=== PATIENT | male | born 1975 | race Caucasian/White ===

== ENCOUNTER 2017-07-19 21:20 | Inpatient (IN) | payer OTHER ==
[2017-07-19 21:20] VITALS: BMI 48.2
--- NOTE | 2017-07-19 22:13 | C.PDOC ---
History Of Present Illness 41 y/o male c/o painful wound to the right tibia area for 1 day. Patient notes hitting his right leg when getting out the shower yesterday. Patient is a poor controller of his blood pressure and diabetes at home. Patient had former chronic pain issues and is now taking Methadone 145 mg daily. Denies fever, chills, weakness, numbness, or any other complaints. Time Seen by Provider: 07/19/17 22:06 Chief Complaint (Nursing): Abnormal Skin Integrity History Per: Patient History/Exam Limitations: no limitations Onset/Duration Of Symptoms: Days Current Symptoms Are (Timing): Still Present Location Of Injury: Right: Leg Severity: Mild Recent travel outside of the [place]: No Additional History Per: Patient Past Medical History Reviewed: Historical Data, Nursing Documentation, Vital Signs Vital Signs: Last Vital Signs Temp 99 F 07/19/17 23:46 Pulse 114 H 07/19/17 23:46 Resp 20 07/19/17 23:46 BP 152/85 H 07/19/17 23:46 Pulse Ox 98 07/19/17 23:46 - Medical History PMH: Arthritis (hands), Asthma, Bronchitis, CVA (3x), Diabetes, HTN, Hypercholesterolemia Denies: Depression, Chronic Kidney Disease Surgical History: Denies: Pacemaker - [facility] Procedures INFLUENZA VACCINATION (01/20/15) INJECT/INFUSE ELECTROLYT (04/11/12) INJECT/INFUSE NEC (09/26/14) INSERTION OF INFUSION DEV INTO SUP VENA CAVA, PERC APPROACH (08/18/16) OTHER SKIN & SUBQ I D (07/20/14) REMOVAL OF INT FIX FROM L ULNA, OPEN APPROACH (07/07/16) REPLACEMENT OF LEFT ULNA WITH AUTOL SUB, OPEN APPROACH (07/07/16) REPOSITION LEFT ULNA WITH INT FIX, OPEN APPROACH (07/07/16) SCROTUM & TUNICA I D (01/20/15) SUPPLEMENT LEFT ULNA WITH NONAUT SUB, OPEN APPROACH (07/07/16) Family History: States: Diabetes, Hypertension - Social History Hx Tobacco Use: No Hx Alcohol Use: No Hx Substance Use: No - Immunization History Hx Tetanus Toxoid Vaccination: No Hx Influenza Vaccination: No Hx Pneumococcal Vaccination: No Review Of Systems Except As Marked, All Systems Reviewed And Found Negative. Constitutional: Negative for: Fever, Chills Musculoskeletal: Positive for: Leg Pain Neurological: Negative for: Weakness, Numbness Physical Exam - Physical Exam Appears: Non-toxic, No Acute Distress, Other (Morbidly obese) Skin: Warm, Dry Head: Atraumatic, Normacephalic Oral Mucosa: Moist Neck: Supple Chest: Other (Bilateral breast gynecomastia) Cardiovascular: Rhythm Regular Respiratory: Normal Breath Sounds, No Rales, No Rhonchi, No Wheezing Gastrointestinal/Abdominal: Soft, No Tenderness Extremity: Capillary Refill (<2secs), Other (Amputation to the left hip. 10cm x 5cm abrasion to the anterior aspect of the right tibia with surrounding erythema.) Pulses: Right Dorsalis Pedis: Normal (Pulses bounding) Neurological/Psych: Oriented x3, Normal Speech, Normal Cognition, Normal Motor, Normal Sensation ED Course And Treatment - Laboratory Results Result Diagrams: 07/19/17 22:38 08 22:38 Lab Interpretation: Abnormal (++ glu, trop neg.) ECG: Interpreted By Co ECG Rhythm: Sinus Rhythm ECG Interpretation: Normal Rate From EC O2 Sat by Pulse Oximetry: 100 (RA) Pulse Ox Interpretation: Normal - Radiology CXR: Interpreted by Me CXR Interpretation: Yes: No Acute Disease Progress Note: vomited during zosyn infusion, refuses further Zosyn. zofran given. pt argumentative confrontational, wants to go outside for "fresh air" instructed not to. Reevaluation Time: 23:19 Reassessment Condition: Improved - Physician Consult Information Outcome Of Conversation: 2220: d/w Dr. Villalobos and Dr. Phillips, ok to med surg Obs. Medical Decision Making Medical Decision Making: Impression: 41 y/o male c/o painful wound to the right tibia area for 1 day. Plans: * EKG * Blood work up * CXR * Zofran * Trandate * Blood culture * IV fluids infection R anterior tibia area x 1 day after superficial abrasion zosyn started Vanco allergic- deferred. Dr. Phillips to consult as prior Behavioral abnormalities, ? Boarderline personality vs CVA x 3 Disposition Doctor Will See Patient In The: Hospital Counseled Patient/Family Regarding: Studies Performed, Diagnosis - Disposition Disposition: HOSPITALIZED Disposition Time: 23:21 Condition: GOOD - Clinical Impression Clinical Impression: Cellulitis of leg, right, Hypertension, Diabetes - Scribe Statement The provider has reviewed the documentation as recorded by the Scribe Darline bojorquez All medical record entries made by the Reginaibe were at my direction and personally dictated by me. I have reviewed the chart and agree that the record accurately reflects my personal performance of the history, physical exam, medical decision making, and the department course for this patient. I have also personally directed, reviewed, and agree with the discharge instructions and disposition.
[2017-07-19] MEDS ORDERED: (Novolin R) Insulin Human Regular 100 units/ml vial IV STA (22:14)
[2017-07-19] MEDS ORDERED: Piperacillin/Tazobact 3.375 gm 100 ML IVPB STA (22:14)
[2017-07-19] MEDS ORDERED: Piperacillin/Tazobact 3.375 gm 100 ML IVPB ONE (22:24)
[2017-07-19] MEDS ORDERED: (Novolin R) Insulin Human Regular 100 units/ml vial ONE (22:24)
[2017-07-19 22:42] LABS: BASO # 0.1 K/uL (0.0-0.2); BASO % 1.1 % (0.0-2.0); EOS # 0.1 K/uL (0.0-0.7); EOS % 0.7 % (0.0-4.0); HEMATOCRIT 37.4 % (35.0-51.0); LYMPH # 1.3 K/uL (1.0-4.3); LYMPH % 14.5 % (20.0-40.0); MEAN CELL VOLUME 81.5 fL (80.0-94.0); MEAN CORPUSCULAR HEMOGLOBIN 27.7 pg (27.0-31.0); MEAN CORPUSCULAR HGB CONC 33.9 g/dL (33.0-37.0); MONO # 0.4 K/uL (0.0-0.8); MONO % 4.9 % (0.0-10.0); RED CELL DISTRIBUTION WIDTH 13.3 % (11.5-14.5); WHITE BLOOD COUNT 9.2 K/uL (4.8-10.8)
[2017-07-19 22:49] LABS: CHLORIDE 95 mmol/L (98-107); POTASSIUM 4.4 mmol/L (3.6-5.2); SODIUM 132 mmol/L (132-148)
[2017-07-19 22:51] LABS: ALB/GLOB RATIO 0.8 (1.0-2.1); ALKALINE PHOSPHATASE 99 U/L (38-126); AST/SGOT 25 U/L (17-59); BILIRUBIN,TOTAL 0.5 mg/dL (0.2-1.3); CARBON DIOXIDE 30 mmol/L (22-30); GFR AFRICAN-AMERICAN > 60; TOTAL PROTEIN 6.3 g/dL (6.3-8.3)
[2017-07-19 22:52] LABS: ALT/SGPT 31 U/L (21-72); BLOOD UREA NITROGEN 12 mg/dL (9-20); CALCIUM 8.5 mg/dl (8.6-10.4)
[2017-07-19 23:04] LABS: GLUCOSE,RANDOM 420 mg/dL (75-110)
[2017-07-19 23:31] VITALS: RESP 20
[2017-07-20] MEDS: Albuterol-Ipratrop 3 mg / 0.5 (3 ml) UD INH SCH ×3 (09:23→19:24)
[2017-07-20] MEDS: Enoxaparin 40 mg Syringe SC SCH (10:13)
[2017-07-20] MEDS: Saccharomyces Boulardi 250 mg Cap PO SCH ×2 (10:13→17:18)
[2017-07-20] MEDS: Lactobacillus Acidophilus 500 MU Cap PO SCH ×2 (10:14→17:19)
[2017-07-20] MEDS: (Novolin R) Insulin Human Regular 100 units/ml vial SC SCH ×4 (10:14→22:03)
--- NOTE | 2017-07-20 11:04 | RAD ---
HISTORY: SOB COMPARISON: Chest x-ray performed 10/31/14 TECHNIQUE: Chest, one view. FINDINGS: Examination limited by habitus. LUNGS: Mild pulmonary venous congestion. Bilateral hilar prominence. Please note that chest x-ray has limited sensitivity for the detection of pulmonary masses. PLEURA: No significant pleural effusion identified. No definite pneumothorax . CARDIOVASCULAR: Heart size appears top normal. OSSEOUS STRUCTURES: No acute osseous abnormality identified. VISUALIZED UPPER ABDOMEN: Unremarkable. OTHER FINDINGS: None. IMPRESSION: Mild pulmonary venous congestion. Bilateral hilar prominence.
--- NOTE | 2017-07-20 11:41 | CARD ---
APPROVED REPORT EKG Measurement Heart [id number] <Conclusion> Normal sinus rhythm Incomplete right bundle branch block Prolonged QT Abnormal ECG
[2017-07-20] MEDS ORDERED: Methadone 40 mg Tab PO SCH ×2 (13:02→13:30)
[2017-07-20] MEDS: Methadone 40 mg Tab PO SCH (13:45)
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
[2017-07-20] MEDS: (Lantus) Insulin Glargine, Recombinant SC SCH (22:03)
[2017-07-21] MEDS: Albuterol-Ipratrop 3 mg / 0.5 (3 ml) UD INH SCH ×3 (01:25→20:19)
[2017-07-21] MEDS: (Novolin R) Insulin Human Regular 100 units/ml vial SC SCH ×4 (07:51→22:24)
[2017-07-21] MEDS: Methadone 40 mg Tab PO SCH (09:58)
[2017-07-21] MEDS: Lactobacillus Acidophilus 500 MU Cap PO SCH ×2 (10:07→22:24)
[2017-07-21] MEDS: Saccharomyces Boulardi 250 mg Cap PO SCH ×2 (10:07→18:46)
[2017-07-21] MEDS: Enoxaparin 40 mg Syringe SC SCH (10:10)
[2017-07-21 16:33] VITALS: BP 143/88; PULSE 86; TEMP 97.6; O2SAT 96
--- NOTE | 2017-07-21 19:31 | CP.PCM.PN ---
Subjective - Date & Time of Evaluation Date of Evaluation: 07/21/17 Time of Evaluation: 19:31 Objective - Vital Signs/Intake and Output Vital Signs (last 24 hours): Temp Pulse Resp BP Pulse Ox 97.6 F 86 20 143/88 96 07/21/17 15:32 07/21/17 15:32 07/21/17 15:32 07/21/17 15:32 07/21/17 15:32 - Medications Medications: Current Medications Albuterol/Ipratropium (Duoneb 3 Mg/0.5 Mg (3 Ml) Ud) 3 ml INH RQ6 [facility] Last Admin: 07/21/17 08:07 Dose: Not Given Amlodipine Besylate (Norvasc) 5 mg PO DAILY [facility] Last Admin: 07/21/17 10:00 Dose: 5 mg Enoxaparin Sodium (Lovenox) 40 mg SC DAILY [facility] Last Admin: 07/21/17 10:10 Dose: 40 mg Cefepime HCl 1 gm/ Dextrose 50 mls @ 100 mls/hr IVPB Q12H [facility] Last Admin: 07/21/17 10:00 Dose: 100 mls/hr Clindamycin Phosphate 600 mg/ (Sodium Chloride) 54 mls @ 100 mls/hr IVPB Q8H [facility] Last Admin: 07/21/17 18:46 Dose: 100 mls/hr Insulin Glargine (Lantus) 5 unit SC HS [facility] Last Admin: 07/20/17 22:03 Dose: 5 units Insulin Human Regular (Novolin R) 0 unit SC [facility] PRN Reason: Protocol Last Admin: 07/21/17 18:49 Dose: 4 unit Lactobacillus Acidophilus (Bacid Acidophilus) 1 cap PO BID [facility] Last Admin: 07/21/17 10:07 Dose: 1 cap Losartan Potassium (Cozaar) 100 mg PO DAILY [facility] Last Admin: 07/21/17 10:07 Dose: 100 mg Methadone HCl (Methadone) 20 mg PO DAILY [facility] Last Admin: 07/21/17 10:04 Dose: 20 mg Methadone HCl (Methadone) 5 mg PO DAILY [facility] Last Admin: 07/21/17 10:04 Dose: 5 mg Methadone HCl (Methadose) 120 mg PO DAILY [facility] Last Admin: 07/21/17 09:58 Dose: 120 mg Pregabalin (Lyrica) 50 mg PO TID [facility] Last Admin: 07/21/17 18:48 Dose: Not Given Rosuvastatin Calcium (Crestor) 10 mg PO HS [facility] Last Admin: 07/20/17 22:02 Dose: 10 mg Saccharomyces Boulardii (Florastor) 250 mg PO BID [facility] Last Admin: 07/21/17 18:46 Dose: 250 mg Assessment and Plan (1) Cellulitis of leg, right Status: Acute (2) Diabetes Status: Acute (3) Hypertension Status: Chronic
[2017-07-21] MEDS: (Lantus) Insulin Glargine, Recombinant SC SCH (22:24)
[2017-07-22] MEDS: Albuterol-Ipratrop 3 mg / 0.5 (3 ml) UD INH SCH ×3 (01:41→13:15)
[2017-07-22] MEDS: (Novolin R) Insulin Human Regular 100 units/ml vial SC SCH ×2 (08:30→12:37)
[2017-07-22] MEDS: Saccharomyces Boulardi 250 mg Cap PO SCH (09:44)
[2017-07-22] MEDS: Methadone 40 mg Tab PO SCH (09:44)
[2017-07-22] MEDS: Enoxaparin 40 mg Syringe SC SCH (09:44)
[2017-07-22] MEDS: Lactobacillus Acidophilus 500 MU Cap PO SCH (09:44)
--- NOTE | 2017-07-22 14:42 | CP.PCM.PN ---
Subjective - Date & Time of Evaluation Date of Evaluation: 07/22/17 Time of Evaluation: 14:42 Objective - Vital Signs/Intake and Output Vital Signs (last 24 hours): Temp Pulse Resp BP Pulse Ox 97.6 F 86 20 143/88 96 07/21/17 15:32 07/21/17 15:32 07/21/17 15:32 07/21/17 15:32 07/21/17 15:32 Intake and Output: 07/22/17 07/22/17 06:59 18:59 Intake Total 900 Output Total 1325 1000 Balance -1325 -100 - Medications Medications: Current Medications Albuterol/Ipratropium (Duoneb 3 Mg/0.5 Mg (3 Ml) Ud) 3 ml INH RQ6 [facility] Last Admin: 07/22/17 13:15 Dose: 3 ml Amlodipine Besylate (Norvasc) 5 mg PO DAILY [facility] Last Admin: 07/22/17 09:44 Dose: 5 mg Enoxaparin Sodium (Lovenox) 40 mg SC DAILY [facility] Last Admin: 07/22/17 09:44 Dose: 40 mg Cefepime HCl 1 gm/ Dextrose 50 mls @ 100 mls/hr IVPB Q12H [facility] Last Admin: 07/22/17 09:44 Dose: 100 mls/hr Clindamycin Phosphate 600 mg/ (Sodium Chloride) 54 mls @ 100 mls/hr IVPB Q8H [facility] Last Admin: 07/22/17 10:25 Dose: 100 mls/hr Insulin Glargine (Lantus) 5 unit SC HS [facility] Last Admin: 07/21/17 22:24 Dose: 5 units Insulin Human Regular (Novolin R) 0 unit SC ACHS [facility] PRN Reason: Protocol Last Admin: 07/22/17 12:37 Dose: 8 unit Lactobacillus Acidophilus (Bacid Acidophilus) 1 cap PO BID [facility] Last Admin: 07/22/17 09:44 Dose: 1 cap Losartan Potassium (Cozaar) 100 mg PO DAILY [facility] Last Admin: 07/22/17 09:44 Dose: 100 mg Methadone HCl (Methadone) 20 mg PO DAILY [facility] Last Admin: 07/22/17 09:44 Dose: 20 mg Methadone HCl (Methadone) 5 mg PO DAILY [facility] Last Admin: 07/22/17 09:44 Dose: 5 mg Methadone HCl (Methadose) 120 mg PO DAILY [facility] Last Admin: 07/22/17 09:44 Dose: 120 mg Pregabalin (Lyrica) 50 mg PO TID [facility] Last Admin: 07/22/17 13:07 Dose: Not Given Rosuvastatin Calcium (Crestor) 10 mg PO HS [facility] Last Admin: 07/21/17 22:24 Dose: 10 mg Saccharomyces Boulardii (Florastor) 250 mg PO BID [facility] Last Admin: 07/22/17 09:44 Dose: 250 mg Assessment and Plan (1) Cellulitis of leg, right Status: Acute (2) Diabetes Status: Acute (3) Hypertension Status: Chronic
--- NOTE | 2017-07-22 16:25 | CP.PCM.PN ---
Subjective - Date & Time of Evaluation Date of Evaluation: 07/22/17 Time of Evaluation: 16:22 - Subjective Subjective: PT SEEN AND EXAMINED TODAY, DENIES ANY PAIN, SOB, RESP EASY AND UNLABORED, NAD Objective - Vital Signs/Intake and Output Vital Signs (last 24 hours): Temp Pulse Resp BP Pulse Ox 97.6 F 86 20 143/88 96 07/21/17 15:32 07/21/17 15:32 07/21/17 15:32 07/21/17 15:32 07/21/17 15:32 Intake and Output: 07/22/17 07/22/17 06:59 18:59 Intake Total 900 Output Total 1325 1000 Balance -1325 -100 - Medications Medications: Current Medications Albuterol/Ipratropium (Duoneb 3 Mg/0.5 Mg (3 Ml) Ud) 3 ml INH RQ6 [facility] Last Admin: 07/22/17 13:15 Dose: 3 ml Amlodipine Besylate (Norvasc) 5 mg PO DAILY [facility] Last Admin: 07/22/17 09:44 Dose: 5 mg Enoxaparin Sodium (Lovenox) 40 mg SC DAILY [facility] Last Admin: 07/22/17 09:44 Dose: 40 mg Cefepime HCl 1 gm/ Dextrose 50 mls @ 100 mls/hr IVPB Q12H [facility] Last Admin: 07/22/17 09:44 Dose: 100 mls/hr Clindamycin Phosphate 600 mg/ (Sodium Chloride) 54 mls @ 100 mls/hr IVPB Q8H [facility] Last Admin: 07/22/17 10:25 Dose: 100 mls/hr Insulin Glargine (Lantus) 5 unit SC HS [facility] Last Admin: 07/21/17 22:24 Dose: 5 units Insulin Human Regular (Novolin R) 0 unit SC ACHS [facility] PRN Reason: Protocol Last Admin: 07/22/17 12:37 Dose: 8 unit Lactobacillus Acidophilus (Bacid Acidophilus) 1 cap PO BID [facility] Last Admin: 07/22/17 09:44 Dose: 1 cap Losartan Potassium (Cozaar) 100 mg PO DAILY [facility] Last Admin: 07/22/17 09:44 Dose: 100 mg Methadone HCl (Methadone) 20 mg PO DAILY [facility] Last Admin: 07/22/17 09:44 Dose: 20 mg Methadone HCl (Methadone) 5 mg PO DAILY [facility] Last Admin: 07/22/17 09:44 Dose: 5 mg Methadone HCl (Methadose) 120 mg PO DAILY [facility] Last Admin: 07/22/17 09:44 Dose: 120 mg Pregabalin (Lyrica) 50 mg PO TID [facility] Last Admin: 07/22/17 13:07 Dose: Not Given Rosuvastatin Calcium (Crestor) 10 mg PO HS [facility] Last Admin: 07/21/17 22:24 Dose: 10 mg Saccharomyces Boulardii (Florastor) 250 mg PO BID [facility] Last Admin: 07/22/17 09:44 Dose: 250 mg Assessment and Plan - Assessment and Plan (Free Text) Plan: 41 Y/O MALE WITH PMHX HTN. DM, L BKA ADMITTED FOR RT LEG CELLULITIS, UNCONTROLLED HTN, DR MENA CONSUKTED, TREATED W/IV ABX DOPPLER RLE- NO DVT PO ABX RX FOR LEVAQUIN 750 MG PO DAILY GIVEN BY DR LUNA PT EDUCATED TO F/U W/PMD, DR MENA RETURN TO ED IF ANY WORSENING S/S
--- NOTE | 2017-07-25 09:41 | VASCLAB ---
PROCEDURE: Right Lower Extremity Venous Duplex Exam. HISTORY: Right Leg Cellulitis PRIORS: Last vascular lower venous study, 10/31/2014, normal. TECHNIQUE: Right common femoral, femoral, popliteal and posterior tibial, peroneal and great saphenous veins were evaluated. Flow was assessed with color Doppler, compressibility, assessment of phasic flow and augmentation response. Report prepared by SHU Trejo FINDINGS: RIGHT: 1. Common Femoral Vein: 1.1. Compressibility - Fully compressible: Thrombus - None: Flow - Phasic: Augmentation -Normal: Reflux - None. 2. Femoral Vein: (proximal and mid views only) 2.1. Compressibility - Fully compressible: Thrombus - None: Flow - Phasic: Augmentation -Normal: Reflux - None. 3. Popliteal Vein: 3.1. Compressibility - Fully compressible: Thrombus - None: Flow - Phasic: Augmentation -Normal: Reflux - None. 4. Posterior Tibial Vein: (distal view only) 4.1. Compressibility - Fully compressible: Thrombus - None: Flow - Phasic: Augmentation -Normal: Reflux - None. 5. Peroneal Vein: 5.1. Not visualized. 6. Great Saphenous Vein: 6.1. Compressibility - Fully compressible: Thrombus -None: Flow - Phasic: Augmentation - Normal: Reflux - None. OTHER FINDINGS: Unable to clearly image the distal femoral, proximal posterior tibial and peroneal veins, due to swelling. IMPRESSION: No evidence of deep or superficial vein thrombosis of the right lower extremity, for those imaged veins. Normal valve function noted of the right side.
--- NOTE | 2017-07-26 02:53 | CP.PCM.DIS ---
Provider - Provider Date of Admission: 07/21/17 10:43 Attending physician: Viridiana Nino MD Diagnosis - Discharge Diagnosis (1) Cellulitis of leg, right Status: Acute (2) Diabetes Status: Acute (3) Hypertension Status: Chronic Hospital Course - Lab Results Lab Results: Most Recent Lab Values WBC 9.2 K/uL (4.8-10.8) 07/19/17 22:38 RBC 4.59 Mil/uL (4.40-5.90) 07/19/17 22:38 Hgb 12.7 g/dL (12.0-18.0) 07/19/17 22:38 Hct 37.4 % (35.0-51.0) 07/19/17 22:38 MCV 81.5 fL (80.0-94.0) 07/19/17 22:38 MCH 27.7 pg (27.0-31.0) 07/19/17 22:38 MCHC 33.9 g/dL (33.0-37.0) 07/19/17 22:38 RDW 13.3 % (11.5-14.5) 07/19/17 22:38 Plt Count 183 K/uL (130-400) 07/19/17 22:38 MPV 9.0 fL (7.2-11.7) 07/19/17 22:38 Neut % (Auto) 78.8 % (50.0-75.0) H 07/19/17 22:38 Lymph % (Auto) 14.5 % (20.0-40.0) L 07/19/17 22:38 [place] % (Auto) 4.9 % (0.0-10.0) 07/19/17 22:38 Eos % (Auto) 0.7 % (0.0-4.0) 07/19/17 22:38 Baso % (Auto) 1.1 % (0.0-2.0) 07/19/17 22:38 Neut # 7.3 K/uL (1.8-7.0) H 07/19/17 22:38 Lymph # 1.3 K/uL (1.0-4.3) 07/19/17 22:38 [place]ell # 0.4 K/uL (0.0-0.8) 07/19/17 22:38 Eos # 0.1 K/uL (0.0-0.7) 07/19/17 22:38 Baso # 0.1 K/uL (0.0-0.2) 07/19/17 22:38 Sodium 132 mmol/L (132-148) 07/19/17 22:38 Potassium 4.4 mmol/L (3.6-5.2) 07/19/17 22:38 Chloride 95 mmol/L (98-107) L 07/19/17 22:38 Carbon Dioxide 30 mmol/L (22-30) 07/19/17 22:38 Anion Gap 12 (10-20) 07/19/17 22:38 BUN 12 mg/dL (9-20) 07/19/17 22:38 Creatinine 0.8 MG/DL (0.8-1.5) 07/19/17 22:38 Est GFR ( Amer) > 60 07/19/17 22:38 Est GFR (Non-Af Amer) > 60 07/19/17 22:38 POC Glucose (mg/dL) 351 mg/dL (65-110) H 07/22/17 11:26 Random Glucose 420 mg/dL (75-110) H* 07/19/17 22:38 Calcium 8.5 mg/dl (8.6-10.4) L 07/19/17 22:38 Total Bilirubin 0.5 mg/dL (0.2-1.3) 07/19/17 22:38 AST 25 U/L (17-59) 07/19/17 22:38 ALT 31 U/L (21-72) 07/19/17 22:38 Alkaline Phosphatase 99 U/L (38-126) 07/19/17 22:38 Troponin I < 0.0120 ng/mL (0.00-0.120) 07/19/17 22:38 Total Protein 6.3 g/dL (6.3-8.3) 07/19/17 22:38 Albumin 2.9 g/dL (3.5-5.0) L 07/19/17 22:38 Globulin 3.4 gm/dL (2.2-3.9) 07/19/17 22:38 Albumin/Globulin Ratio 0.8 (1.0-2.1) L 07/19/17 22:38 Discharge Exam - Head Exam Head Exam: NORMAL INSPECTION Discharge Plan - Discharge Medications Prescriptions: levoFLOXacin [Levaquin] 750 mg PO DAILY #10 tab - Follow Up Plan Condition: GOOD Disposition: HOME/ ROUTINE Instructions: Cellulitis (DC), Heart Healthy Diet (DC), Diabetic Foot Care (DC) , Basic Carbohydrate Counting (DC), Meal Planning with the Plate Method (DC), Meal Planning with Diabetes Exchanges (DC), Hypertension (DC) Additional Instructions: FOLLOW UP WITH YOUR PMD CONTINUE MEDS PER MED REC CALL DR NINO IF ANY FURTHER QUESTIONS RETURN TO ED IF ANY WORSENING SYMPTOMS Referrals: Viridiana Nino MD [Staff Provider] - Ciro Rodriguez DO [Staff Provider] - Evan Bradley MD [Staff Provider] -
== END 2017-07-22 16:27 | disposition home or self-care (01) | DRG 294 ==
LOC: C.ER 21:20 → SUPCPDRO 21:20 → C.9E 22:21 → C.5T 23:01 → C.6T 07-21 08:58 → OBSVTOIN 07-21 10:43
PROVIDERS: ADMIT Internal Medicine Critical Care Medicine; ATTEND Internal Medicine Critical Care Medicine
DX: E11.628 Type 2 diabetes mellitus with other skin complications (principal); L03.115 Cellulitis of right lower limb; Z89.612 Acquired absence of left leg above knee; M19.049 Primary osteoarthritis, unspecified hand; I10 Essential (primary) hypertension; J45.909 Unspecified asthma, uncomplicated; Z86.73 Personal history of transient ischemic attack (TIA), and cerebral infarction without residual deficits; E78.00 Pure hypercholesterolemia, unspecified; F60.3 Borderline personality disorder; Z79.4 Long term (current) use of insulin

== ENCOUNTER 2017-09-21 22:15 | Emergency (ER) | payer OTHER ==
[2017-09-21 22:16] VITALS: BMI 48.2
--- NOTE | 2017-09-21 23:47 | C.PDOC ---
History Of Present Illness Patient is a 41 y/o male who presents to the ED with a complaint of stress. Patient refuses to answer questions and refuses to speak to ED physician at this time. No other physical complaints at this time. Chief Complaint (Nursing): Psychiatric Evaluation History Per: Patient Associated Symptoms: Other (stress) Recent travel outside of the [place]: No Past Medical History Reviewed: Historical Data, Nursing Documentation, Vital Signs Vital Signs: Last Vital Signs Temp 98 F 09/22/17 03:31 Pulse 87 09/22/17 03:31 Resp 20 09/22/17 03:31 BP 150/84 09/22/17 03:31 Pulse Ox 97 09/22/17 03:31 - Medical History PMH: Arthritis (hands), Asthma, Bronchitis, CVA (3x), Diabetes, HTN, Hypercholesterolemia Denies: Depression, Chronic Kidney Disease Surgical History: Denies: Pacemaker - [facility] Procedures INFLUENZA VACCINATION (01/20/15) INJECT/INFUSE ELECTROLYT (04/11/12) INJECT/INFUSE NEC (09/26/14) INSERTION OF INFUSION DEV INTO SUP VENA CAVA, PERC APPROACH (08/18/16) OTHER SKIN & SUBQ I D (07/20/14) REMOVAL OF INT FIX FROM L ULNA, OPEN APPROACH (07/07/16) REPLACEMENT OF LEFT ULNA WITH AUTOL SUB, OPEN APPROACH (07/07/16) REPOSITION LEFT ULNA WITH INT FIX, OPEN APPROACH (07/07/16) SCROTUM & TUNICA I D (01/20/15) SUPPLEMENT LEFT ULNA WITH NONAUT SUB, OPEN APPROACH (07/07/16) Family History: States: Diabetes, Hypertension - Social History Hx Tobacco Use: No Hx Alcohol Use: No Hx Substance Use: No - Immunization History Hx Tetanus Toxoid Vaccination: Yes Hx Influenza Vaccination: Yes Hx Pneumococcal Vaccination: Yes Review Of Systems Review Of Systems: ROS cannot be obtained secondary to pt's inabilty to answer questions. Physical Exam - Physical Exam Appears: In Acute Distress Skin: Normal Color, Warm, Dry Head: Atraumatic, Normacephalic Oral Mucosa: Moist Chest: Symmetrical Cardiovascular: Rhythm Regular, No Murmur Respiratory: Normal Breath Sounds, No Rales, No Rhonchi, No Stridor Extremity: Other (left leg amputation) ED Course And Treatment - Laboratory Results Result Diagrams: 09/21/17 23:55 09/22/17 00:33 O2 Sat by Pulse Oximetry: 97 Medical Decision Making Medical Decision Making: Plan: blood work and UA ordered. Crisis has been notified. Disposition - Disposition Referrals: Naga Landis Thomas, [Non-Staff] - Disposition: HOME/ ROUTINE Disposition Time: 03:05 Condition: GOOD Additional Instructions: Thank you for letting us take care of you today. You were treated for depression. The emergency medical care you received today was directed at your acute symptoms. If you were prescribed any medication, please fill it and take as directed. It may take several days for your symptoms to resolve. Return to the Emergency Department if your symptoms worsen, do not improve, or if you have any other problems. Please contact your doctor or call one of the physicians/clinics you have been referred to that are listed on the Patient Visit Information form that is included in your discharge packet. Bring any paperwork you were given at discharge with you along with any medications you are taking to your follow up visit. Our treatment cannot replace ongoing medical care by a primary care provider (PCP) outside of the emergency department. Thank you for allowing the [employer] team to be part of your care today. Follow up as instructed by our crisis team. Return to the emergency room if you have any concerns. Instructions: Depression (ED) Forms: [employer] (Burkinan) - Clinical Impression Clinical Impression: Depression - Scribe Statement The provider has reviewed the documentation as recorded by the Scribe Danay Braun All medical record entries made by the Scribe were at my direction and personally dictated by me. I have reviewed the chart and agree that the record accurately reflects my personal performance of the history, physical exam, medical decision making, and the department course for this patient. I have also personally directed, reviewed, and agree with the discharge instructions and disposition.
[2017-09-22 00:06] LABS: BASO # 0.1 K/uL (0.0-0.2); BASO % 0.7 % (0.0-2.0); EOS # 0.1 K/uL (0.0-0.7); EOS % 0.7 % (0.0-4.0); HEMATOCRIT 37.6 % (35.0-51.0); LYMPH # 2.1 K/uL (1.0-4.3); LYMPH % 22.7 % (20.0-40.0); MEAN CELL VOLUME 81.8 fL (80.0-94.0); MEAN CORPUSCULAR HEMOGLOBIN 27.9 pg (27.0-31.0); MEAN CORPUSCULAR HGB CONC 34.2 g/dL (33.0-37.0); MEAN PLATELET VOLUME 8.6 fL (7.2-11.7); MONO # 0.5 K/uL (0.0-0.8); MONO % 5.3 % (0.0-10.0); NRBC % 0.1 % (0.0-2.0); RED CELL DISTRIBUTION WIDTH 13.4 % (11.5-14.5); WHITE BLOOD COUNT 9.3 K/uL (4.8-10.8)
[2017-09-22 00:50] LABS: CHLORIDE 97 mmol/L (98-107)
[2017-09-22 00:51] LABS: RBC URINE 10 /hpf (0-3); URINE BACTERIA RARE (<OCC); URINE BILIRUBIN NEGATIVE (NEGATIVE); URINE BLOOD 1+ (NEGATIVE); URINE COLOR Yellow (YELLOW); URINE GLUCOSE (UA) 3+ mg/dL (Normal); URINE KETONE NEGATIVE (NEGATIVE); URINE LEUKOCYTE ESTERASE NEG Leu/uL (Negative); URINE PROTEIN 3+ mg/dL (NEGATIVE); URINE UROBILINOGEN NORMAL mg/dL (0.2-1.0); WBC URINE 1 /hpf (0-5)
[2017-09-22 00:51] LABS: POTASSIUM 3.9 mmol/L (3.6-5.2); SODIUM 133 mmol/L (132-148)
[2017-09-22 00:53] LABS: ALB/GLOB RATIO 1.1 (1.0-2.1); ALKALINE PHOSPHATASE 101 U/L (38-126); AST/SGOT 19 U/L (17-59); BILIRUBIN,TOTAL 0.4 mg/dL (0.2-1.3); BLOOD UREA NITROGEN 15 mg/dL (9-20); CARBON DIOXIDE 27 mmol/L (22-30); GFR AFRICAN-AMERICAN > 60; TOTAL PROTEIN 6.4 g/dL (6.3-8.3)
[2017-09-22 00:54] LABS: ALCOHOL SERUM < 10 mg/dl (0-10); ALT/SGPT 27 U/L (21-72); CALCIUM 8.3 mg/dl (8.6-10.4); GLUCOSE,RANDOM 168 mg/dL (75-110)
[2017-09-22 03:34] VITALS: BP 150/84; PULSE 87; RESP 20; TEMP 98; O2SAT 97
== END 2017-09-22 03:31 | disposition home or self-care (01) ==
LOC: C.ER 22:15
DX: F32.9 Major depressive disorder, single episode, unspecified (principal)

== ENCOUNTER 2018-07-14 09:58 | Emergency (ER) | payer MEDICAID, OTHER ==
[2018-07-14 09:58] VITALS: BMI 49.3
--- NOTE | 2018-07-14 10:05 | C.PDOC ---
History Of Present Illness 42 year old male, with PMHx of IDDM, CVA, HTN, HLD, h/o chronic weakness in his right leg, chronic use wheelchair, ho frequent falls. 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 Patient states he was trying to transfer himself from bed to wheelchair when he fell onto his right side. Patient has history of chronic left lower back pain, is c/o acute exacerbation of chronic pain, right hip, and right knee contusion. Patient states he is no longer on chronic pain medications by choice, was previously on methadone. Denies other associated symptoms/injury. Patient states he has not been taking his medications since his discharge from [place]. S/P ACCID FALL THIS MORNING. PS TRYING TO TRANSFER SELF FROM BED TO WC BUT FELL ONTO R SIDE. HO CHRONIC L LOWER BACK PAIN, CO ACUTE EXAC CHRONIC PAIN, R HIP, R KNEE CONTUSION. PS NO LONGER ON CHRONIC PAIN MEDS BY CHOICE, PREV ON METHADONE. DENIES OTHER ASSOC SX/INJURY PMHx of IDDM, CVA, HTN, HLD, h/o chronic weakness in his right leg, chronic use wheelchair, ho frequent falls. 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 DC TYL #3 X 5. EXAM MILD DIST NONTOXIC HEENT ATRAUM BACK LIMITED FULL ROM DUE TO PAIN. +TEND SOFT TISSUE L LOWER BACK. NO SPINAL TEND. ATRAUM EXT ROM WO DIFF, NO DEFORM. R KNEE NO SWELLING, AROM WO DIFF. L LEG AMPUTATION SKIN OLD ABRASION R ANT KNEE ("I FEEL ON IT SEV DAYS AGO"); ABRASION R LOWER ABD WALL ABD SOFT NT ND NO R/G NEURO CHRONIC SLURRED SPEECH, R WRIST PALSY FROM PRIOR CVA REMAINDER NEG - HPI Time Seen by Provider: 07/14/18 10:04 Chief Complaint (Nursing): Trauma History Per: Patient History/Exam Limitations: no limitations Onset/Duration Of Symptoms: Hrs Additional History Per: Patient Past Medical History Reviewed: Historical Data, Nursing Documentation, Vital Signs Vital Signs: Last Vital Signs Temp 98.7 F 07/14/18 13:39 Pulse 121 H 07/14/18 13:39 Resp 20 07/14/18 13:39 BP 172/117 H 07/14/18 13:39 Pulse Ox 99 07/14/18 18:22 - Medical History PMH: Arthritis (hands), Asthma, Bronchitis, CVA (3x), Diabetes, HTN, Hypercholesterolemia Denies: Depression, Hepatitis, Chronic Kidney Disease, Sexually Transmitted Disease Surgical History: No Surg Hx Denies: Pacemaker - [facility] Procedures DETACHMENT AT RIGHT 3RD TOE, HIGH, OPEN APPROACH (05/18/18) EXCISION OF R FOOT SUBCU/FASCIA, OPEN APPROACH (05/18/18) INFLUENZA VACCINATION (01/20/15) INJECT/INFUSE ELECTROLYT (04/11/12) INJECT/INFUSE NEC (09/26/14) INSERTION OF INFUSION DEV INTO SUP VENA CAVA, PERC APPROACH (05/04/18) INTRODUCE OTH ANTI-INFECT IN CENTRAL VEIN, PERC (05/04/18) MAGNETIC RESONANCE IMAGING (MRI) OF RIGHT FOOT (05/04/18) OTHER SKIN & SUBQ I D (07/20/14) REMOVAL OF INT FIX FROM L ULNA, OPEN APPROACH (07/07/16) REPLACEMENT OF LEFT ULNA WITH AUTOL SUB, OPEN APPROACH (07/07/16) REPOSITION LEFT ULNA WITH INT FIX, OPEN APPROACH (07/07/16) SCROTUM & TUNICA I D (01/20/15) SUPPLEMENT LEFT ULNA WITH NONAUT SUB, OPEN APPROACH (07/07/16) ULTRASONOGRAPHY OF SUPERIOR VENA CAVA, GUIDANCE (05/04/18) Family History: States: Diabetes, Hypertension - Social History Hx Tobacco Use: No Hx Alcohol Use: No Hx Substance Use: No - Immunization History Hx Tetanus Toxoid Vaccination: Yes Hx Influenza Vaccination: Yes Hx Pneumococcal Vaccination: Yes Review Of Systems Musculoskeletal: Positive for: Back Pain (left, lower ), Other (right hip pain ) Physical Exam - Physical Exam Appears: Well, Other (in mild distress ) Skin: Normal Color, Warm, Dry, Other (old abrasion to right anterior knee ("I fell on it several days ago")) Head: Atraumatic, Normacephalic Eye(s): bilateral: Normal Inspection, PERRL, EOMI Ear(s): Bilateral: Normal Nose: Normal, No Discharge Oral Mucosa: Moist Throat: Normal, No Erythema, No Exudate Neck: Supple Chest: Symmetrical, No Deformity, No Tenderness Cardiovascular: Rhythm Regular Respiratory: Normal Breath Sounds Gastrointestinal/Abdominal: Soft, No Tenderness, No Distention, No Guarding, No Rebound Back: Decreased ROM (limited full ROM due to pain ), Other (tenderness to soft tissue of left lower back. no spinal tenderness. atraumatic ) Extremity: Normal ROM, Other (ROM wihtout difficulty. no deformity. no swelling to right knee, AROM without difficulty. Left leg amputation ) Neurological/Psych: Other (CHRONIC SLURRED SPEECH, R WRIST PALSY FROM PRIOR CVA) ED Course And Treatment O2 Sat by Pulse Oximetry: 99 (on RA) Pulse Ox Interpretation: Normal Progress Note: Right knee XR and Hip XR ordered and reviewed. Benadryl PO, Catapres PO, Dilaudid PO, Lidoderm TD and Toradol IM given. Progress - Re-Evaluation Re-evaluation Note: 07/14/18 10:09 [facility] REVIWED 07/09/2018 ACETAMINOPHEN-COD #3 TABLET 06/23/2018 GABAPENTIN 800 MG TABLET 05/27/2018 GABAPENTIN 800 MG TABLET 07/14/18 11:40 PT REQUESTING JAIL REHAB PLACEMENT. PS NO LONGER AT PREV REHAB FACILITY, IS DISCONDITIONED SINCE DC FROM [facility]. UNABLE TO CARE FOR SELF AT HOME, FAMILY UNABLE TO CARE FOR PT 07/14/18 11:49 per cm trudi, PT HAS BEEN NONCOMPLIANT W INSURANCE APPLICATION PROCESS. UNABLE TO REFER OR ADMIT PT DUE TO INSURANCE STATUS 07/14/18 12:13 MOTHER STATES CALLED DR PENN SEPARATELY FOR EVAL. D/W DR PENN, [facility] WILL SEE PT IN ER. AWARE OF PT FINDINGS AND HX - Data Reviewed Data Reviewed: Diagnostic imaging Disposition Counseled Patient/Family Regarding: Studies Performed, Diagnosis, Need For Followup - Disposition Disposition: HOME/ ROUTINE Disposition Time: 12:06 Condition: GOOD Prescriptions: amLODIPine [Norvasc] 5 mg PO DAILY #14 tab cloNIDine [Catapres] 0.1 mg PO TID #32 tab Metoprolol Tartrate [Lopressor] 25 mg PO BID #28 tab Instructions: Chronic Pain (DC), Contusion (DC) Forms: [employer] (Bulgarian) - Clinical Impression Clinical Impression: Acute exacerbation of chronic low back pain, Contusion, hip, Vascular insufficiency, Fall - Scribe Statement The provider has reviewed the documentation as recorded by the Scribe (Jacqueline Dexter) Provider Attestation: All medical record entries made by the Scribe were at my direction and personally dictated by me. I have reviewed the chart and agree that the record accurately reflects my personal performance of the history, physical exam, medical decision making, and the department course for this patient. I have also personally directed, reviewed, and agree with the discharge instructions and disposition.
[2018-07-14 10:06] VITALS: PULSE 121; O2SAT 99
[2018-07-14] MEDS ORDERED: Lidocaine 5% Patch TD STA (10:20)
[2018-07-14] MEDS ORDERED: Lidocaine 5% Patch TD ONE (10:35)
[2018-07-14 13:39] VITALS: BP 172/117; RESP 20; TEMP 98.7
--- NOTE | 2018-07-14 13:46 | RAD ---
Pelvis and right hip three views History: Injury. Comparison: None available. Findings: Limited study given the large patient body habitus. Right hip: Moderate narrowing of the right hip joint space with subchondral sclerosis. No evidence for acute displaced fracture or dislocation of the right hip. Mild productive change at the level of the right lesser trochanter inferiorly. Left femur is internally rotated, limiting evaluation. Fracture deformity at this level cannot be excluded. Clinical correlation. Prominent productive change off the left iliac crest. Osteitis pubis. Impression: Moderate narrowing of the right hip joint space with subchondral sclerosis. No evidence for acute displaced fracture or dislocation of the right hip. Mild productive change at the level of the right lesser trochanter inferiorly. Left femur is internally rotated, limiting evaluation. Fracture deformity at this level cannot be excluded. Clinical correlation. Prominent productive change off the left iliac crest. If pain persists, consider correlation with MRI.
--- NOTE | 2018-07-14 13:52 | RAD ---
Right knee three views History: Trauma. Comparison: None available. Findings No evidence of acute displaced fracture or dislocation. Mild medial compartment joint space narrowing of the femorotibial joint space. Few soft tissue calcifications anterior to the proximal tibia both proximally and at its midportion. Narrowing of the patellofemoral joint space. No significant suprapatellar joint effusion. Impression: Degenerative changes. If pain persists, consider MRI.
== END 2018-07-14 13:39 | disposition home or self-care (01) ==
LOC: C.ER 09:58
DX: S70.01XA Contusion of right hip, initial encounter (principal); W06.XXXA Fall from bed, initial encounter; Z91.81 History of falling; Y92.89 Other specified places as the place of occurrence of the external cause; M54.5 Low back pain; I99.8 Other disorder of circulatory system; G89.29 Other chronic pain; I10 Essential (primary) hypertension; E11.9 Type 2 diabetes mellitus without complications; E78.00 Pure hypercholesterolemia, unspecified; F17.210 Nicotine dependence, cigarettes, uncomplicated
CPT/HCPCS: 73502; 73562; 96372; 99284; J1885